=== PATIENT | male | born 1985 | race Caucasian/White ===

== ENCOUNTER → 2021-02-09 | Outpatient (CLI) | payer BC ==
--- NOTE | 2021-02-09 12:22 | EST ---
EXERCISE STRESS AGE: 35 SEX: M HT: 5'11" WT: 195 lbs. PROTOCOL: Johnie STAGE: 3 DURATION OF EXERCISE: 9:00 HEART RATE REST: 80 BLOOD PRESSURE REST: 118/79 MAXIMUM HEART RATE ACHIEVED: 177 MAXIMUM BLOOD PRESSURE: 190/74 85% MPHR: 158 100% MPHR: 186 METS: 10.3 INDICATIONS: Palpitations. CLINICAL INFORMATION: Baseline EKG shows sinus rhythm, normal axis, normal intervals. Patient exercised on Johnie protocol for a total of 9 minutes, achieving 10 METS, 95% of predicted maximal heart rate, without chest pain or diagnostic ST-segment depression. CONCLUSIONS: 1. Good exercise tolerance. 2. Negative stress test by EKG criteria. MMODL / IJN: [id number] /
== END | disposition home or self-care (01) ==
LOC: RADNMMAIN 08:33
PROVIDERS: ATTEND Internal Medicine
DX: R00.2 Palpitations (principal)
CPT/HCPCS: 93017